=== PATIENT | female | born 1945 | race Caucasian/White ===

== ENCOUNTER → 2016-10-09 | Outpatient (CLI) | payer MEDICARE, BC ==
[~2016-10-09] MED LIST: AMOXICILLIN 8751 TAB; AMOXICILLIN 8751 TAB PO; ANTIHISTAMINE25 M1 PO; ASPIRIN 81M81 MG/TA2 PO; FLAX OIL1000 MG; FOSAMAX 70MG TA70 MG PO; GLUCOSAMINE 1000 PO; LEVOTHYROXIN0.025 MG PO; LEVOXYL0.05 MG PO; LIPITOR 10MG10 MG PO; MULTIPLE VITAMI1 CAP PO; TOPROL XL 25MG25 MG PO; TOPROL XL 50MG50 MG PO; VITAMIND3 5000
== END ==
LOC: MC.RAD 09:13
DX: Z12.31 Encounter for screening mammogram for malignant neoplasm of breast (principal); Z80.3 Family history of malignant neoplasm of breast

== ENCOUNTER → 2017-10-12 | Outpatient (CLI) | payer MEDICARE, BC | LOC: MC.RAD 09:19 | DX: Z12.31 Encounter for screening mammogram for malignant neoplasm of breast (principal) ==

== ENCOUNTER → 2017-11-04 | Outpatient (CLI) | payer MEDICARE, BC ==
[~2017-11-04] MED LIST changes: +PROBIOTIC FORMU1 CAP PO; +THE MEDICINE S200 M2 PO
== END ==
LOC: COL.RAD 12:45
DX: K51.00 Ulcerative (chronic) pancolitis without complications (principal); K56.7 Ileus, unspecified; K86.9 Disease of pancreas, unspecified
CPT/HCPCS: Q9967

== ENCOUNTER → 2017-11-25 | Outpatient (CLI) | payer MEDICARE, BC ==
[~2017-11-25] MED LIST changes: +BENTYL 10MG10 MG/CAP PO; +FLAGYL500 MG PO; +PROTONIX20 MG PO; +VANCOCIN H125 MG/CAP PO
== END ==
LOC: COL.RAD 11-23 11:00
DX: R93.5 Abnormal findings on diagnostic imaging of other abdominal regions, including retroperitoneum (principal); R14.0 Abdominal distension (gaseous); R19.4 Change in bowel habit; Z88.5 Allergy status to narcotic agent
CPT/HCPCS: Q9967

== ENCOUNTER 2018-01-30 07:24 | Emergency (ER) | payer MEDICARE, BC ==
[~2018-01-30] VITALS: Ht 165.1 cm; Wt 47.7 kg
[2018-01-30 07:27] VITALS: TEMP 97.6
[2018-01-30 08:15] LABS: COLLECTION METHOD CLEAN CATCH
[2018-01-30 08:23] LABS: PH 8 (5-8); SQUAMOUS EPITHELIAL 0-2 /hpf; URINE APPEARANCE Clear; URINE BACTERIA None Seen /hpf; URINE BILIRUBIN Negative (NEGATIVE); URINE BLOOD Negative (NEGATIVE); URINE COLOR Straw; URINE GLUCOSE Negative (NEGATIVE); URINE KETONE Negative (NEGATIVE); URINE LEUKOCYTE ESTERASE Negative (NEGATIVE); URINE NITRATE Negative (NEGATIVE); URINE PROTEIN(semi-quant) Negative (NEGATIVE); URINE RBC None Seen /hpf; URINE UROBILINOGEN Negative (NEGATIVE)
[2018-01-30 08:29] LABS: BASO # 0.1 (0.0-0.2); EOS # 0.1 (0.0-0.7); EOS % 1.5 % (0-4.0); GRAN # 3.8 (1.4-6.5); GRAN % 64.5 % (42.2-75.2); HEMATOCRIT 44.5 % (37.0-47.0); HEMOGLOBIN 14.4 g/dl (12.5-16.0); LYMPH # 1.6 (1.2-3.4); LYMPH % 26.4 % (20.0-51.0); MEAN CELL VOLUME 88 fl (80.0-100.0); MEAN CORPUSCULAR HEMOGLOBIN 28 pg (27.0-31.0); MEAN CORPUSCULAR HGB CONC 32 g/dl (33.0-37.0); MEAN PLATELET VOLUME 9.1 fl (7.4-10.4); MONO # 0.4 (0.1-0.6); MONO % 6.3 % (1.7-9.3); PLATELET COUNT 220 K/mm3 (130-400); RED BLOOD COUNT 5.08 M/mm3 (4.10-5.30); REDCELL DISTRIBUTION WIDTH-CV 13.5 % (11.5-14.5)
[2018-01-30 08:45] LABS: ALANINE AMINOTRANSFERASE 56 U/L (9-52); ALKALINE PHOSPHATASE 47 U/L (50-136); ANION GAP 9 mmol/L (7-16); AST,SGOT 38 U/L (15-37); BILIRUBIN,TOTAL 0.8 mg/dL (0.0-1.0); BLOOD UREA NITROGEN 14 mg/dL (7-17); CARBON DIOXIDE 29 mmol/L (22-30); CHLORIDE 101 mmol/L (98-107); CREATININE, serum 0.79 mg/dL (0.52-1.25); GLUCOSE 81 mg/dL (74-106); POTASSIUM 3.9 mmol/L (3.4-5.0); SODIUM 140 mmol/L (137-145); TOTAL PROTEIN 7.6 gm/dL (6.4-8.2)
[2018-01-30 08:51] LABS: C-REACTIVE PROTEIN < 0.5 mg/dL (0.0-0.9)
[2018-01-30 10:43] VITALS: BP 146/66; PULSE 60
== END 2018-01-30 10:25 | disposition home or self-care (01) ==
LOC: COL.ER 07:24
PROVIDERS: Nurse Practitioner Primary Care
DX: R10.31 Right lower quadrant pain (principal); G89.29 Other chronic pain; M25.551 Pain in right hip; Z79.82 Long term (current) use of aspirin; E03.9 Hypothyroidism, unspecified; Z90.710 Acquired absence of both cervix and uterus; Z95.0 Presence of cardiac pacemaker
CPT/HCPCS: J1885; Q9967

== ENCOUNTER → 2018-02-03 | Outpatient (CLI) | payer MEDICARE, BC | LOC: COL.RAD 13:00 | DX: M51.27 Other intervertebral disc displacement, lumbosacral region (principal); M51.37 Other intervertebral disc degeneration, lumbosacral region; M48.061 Spinal stenosis, lumbar region without neurogenic claudication; M99.73 Connective tissue and disc stenosis of intervertebral foramina of lumbar region ==

== ENCOUNTER → 2018-06-11 | Outpatient (CLI) | payer MEDICARE, BC | LOC: COL.RAD 08:27 | DX: K63.89 Other specified diseases of intestine (principal); K86.89 Other specified diseases of pancreas; K76.89 Other specified diseases of liver; B96.89 Other specified bacterial agents as the cause of diseases classified elsewhere; D18.03 Hemangioma of intra-abdominal structures; Z87.19 Personal history of other diseases of the digestive system | CPT/HCPCS: Q9967 ==

== ENCOUNTER → 2018-11-17 | Outpatient (CLI) | payer MEDICARE, BC | LOC: MC.RAD 10-18 08:45 | DX: Z12.31 Encounter for screening mammogram for malignant neoplasm of breast (principal) ==

== ENCOUNTER 2019-02-04 12:46 | Inpatient (IN) | payer MEDICARE, BC ==
[~2019-02-04] VITALS: Ht 165.1 cm; Wt 53.5 kg
[~2019-02-04 12:46] MED LIST changes: -FLAX OIL1000 MG; +FLAXSEED OIL1000 MG PO
[2019-02-04 13:30] VITALS: BP 129/45; PULSE 87; TEMP 99
--- NOTE | 2019-02-04 13:35 | NUR ---
Received pt to floor. Oriented to room. Aid in to do initial assessment.
[2019-02-04] MEDS ORDERED: TOPROL XL 25MG25 MG PO (14:14)
--- NOTE | 2019-02-04 14:15 | NUR ---
Pt lying in bed, denies any shortness of breath, c/o pain to head and groin. Completed admission assessment and inserted 20g IV. Denies any needs at this time.
[2019-02-04] MEDS ORDERED: GLUCOSAMINE & C1 CA2 PO (14:17)
[2019-02-04] MEDS ORDERED: CALTRATE 600 +1 TAB PO (14:18)
[2019-02-04 15:18] LABS: BASO % 0.2 % (0.0-2.0); GRAN % 92.2 % (42.2-75.2); HEMATOCRIT 39.9 % (37.0-47.0); HEMOGLOBIN 13.4 g/dl (12.5-16.0); LYMPH # 0.6 (1.2-3.4); LYMPH % 4.8 % (20.0-51.0); MEAN CELL VOLUME 88 fl (80.0-100.0); MEAN CORPUSCULAR HEMOGLOBIN 30 pg (27.0-31.0); MEAN CORPUSCULAR HGB CONC 34 g/dl (33.0-37.0); MEAN PLATELET VOLUME 9.8 fl (7.4-10.4); MONO # 0.3 (0.1-0.6); MONO % 2.3 % (1.7-9.3); PLATELET COUNT 181 K/mm3 (130-400); RED BLOOD COUNT 4.55 M/mm3 (4.10-5.30); REDCELL DISTRIBUTION WIDTH-CV 13.9 % (11.5-14.5)
[2019-02-04 15:28] LABS: ALBUMIN 3.8 gm/dL (3.5-5.0); BILIRUBIN,TOTAL 0.8 mg/dL (0.0-1.0); CALCIUM 8.5 mg/dL (8.4-10.2); CREATININE, serum 0.75 (0.52-1.25); POTASSIUM 3.5 mmol/L (3.4-5.0); TOTAL PROTEIN 6.8 gm/dL (6.4-8.2)
[2019-02-04 15:47] VITALS: BP 116/42; PULSE 82; TEMP 98.5
--- NOTE | 2019-02-04 17:56 | NUR ---
Pt sitting in bed, C/O pain 4/10 to head and groin. Administered pain medication per emar. Dinner ordered, denies any other needs.
[2019-02-04 18:04] LABS: MAGNESIUM 1.8 mg/dL (1.6-2.3)
[2019-02-04 18:16] LABS: TROPONIN-I 0.015 ng/mL (0.000-0.035)
[2019-02-04 18:34] LABS: THYROID STIMULATING HORMONE 0.658 uIU/mL (0.465-4.680)
--- NOTE | 2019-02-04 19:23 | NUR ---
Lab called with question about a lab ordered for borrelia burgdorferi, they believe the test requires CSF or snyovial fluid. Called Na URIARTE, she will follow up with this at a later time ezio.
--- NOTE | 2019-02-04 20:00 | NUR ---
PT IN BED WITH HOB ELEVATED TO 15 DEGREE ANGLE. PT HAS PAIN IN LEFT GROIN AREA THAT IS SWOLLEN. PT ALSO HAS A BITE ON LEFT THIGH AREA THAT IS BROWN, RED, WARM, AND SWOLLEN, ABOUT THE SIDE OF A DIME. PT DENIES PAIN OR DISCOMFORT AT THIS TIME AND NO NEEDS. CALL LIGHT WITHIN REACH.
[2019-02-04 20:06] VITALS: BP 94/38; PULSE 71; TEMP 98.3
[2019-02-04 23:24] VITALS: BP 112/46; PULSE 69; TEMP 98.6
[2019-02-05] VITALS (8 sets, daily range): BP systolic 100–121; BP diastolic 40–50; PULSE 60–75; TEMP 97.5–98.8
--- NOTE | 2019-02-05 06:03 | NUR ---
UNEVENTFUL NIGHT. PT SLEPT/RESTED WELL, WITH NO S/S OF PAIN OR DISCOMFORT NOTED. CALL LIGHT WITHIN REACH.
--- NOTE | 2019-02-05 07:34 | NUR ---
REPORT RECEIVED FROM WAYNE OSPINA. PT JUST AWAKE AND C/O NAUSEA. CALL LIGHT IN REACH.
--- NOTE | 2019-02-05 07:57 | NUR ---
Pt c/o headache and agreed to take Tylenol. Call light in reach. Carckers and Jesus provided.
[2019-02-05 08:50] LABS: HEMATOCRIT 37.3 % (37.0-47.0); HEMOGLOBIN 12.1 g/dl (12.5-16.0); MEAN CELL VOLUME 89 fl (80.0-100.0); MEAN CORPUSCULAR HEMOGLOBIN 29 pg (27.0-31.0); MEAN CORPUSCULAR HGB CONC 32 g/dl (33.0-37.0); MEAN PLATELET VOLUME 9.9 fl (7.4-10.4); PLATELET COUNT 141 K/mm3 (130-400); RED BLOOD COUNT 4.18 M/mm3 (4.10-5.30); REDCELL DISTRIBUTION WIDTH-CV 14.2 % (11.5-14.5)
[2019-02-05 09:04] LABS: BILIRUBIN,TOTAL 0.4 mg/dL (0.0-1.0); CALCIUM 7.7 mg/dL (8.4-10.2); CREATININE, serum 0.64 (0.52-1.25); PHOSPHOROUS 2.1 mg/dL (2.5-4.5); POTASSIUM 3.4 mmol/L (3.4-5.0); TOTAL PROTEIN 5.8 gm/dL (6.4-8.2)
--- NOTE | 2019-02-05 10:29 | NUR ---
Pt resting in bed comfortably and denied pain and nausea. Pt's doroteo visiting in . Call light in reach.
[2019-02-05 11:44] LABS: BAND 8 % (0-10); DOHLE BODIES PRESENT; LYMPHOCYTE 7 % (20.0-51.0); NEUTROPHILS 85 % (42.0-75.2); PLATELET ESTIMATE NORMAL (NORMAL); TOXIC GRANULATION PRESENT
--- NOTE | 2019-02-05 13:26 | NUR ---
Pt c/o headache and asked for Tylenol now. Pack of ice provide for pt to put over her head along with Tylenol. Call light in reach.
--- NOTE | 2019-02-05 14:43 | NUR ---
Plan: Pt plans to return home with Skylar as care support. Pat reports that her will transport home. Patient indicated that she does not require any DME. PCP is Dr. Bhargavi Claire, patient uses [facility] for RX, is verbally reported as dpoa. Patient report pacemaker monitor. No upcoming apps. Action:Sw offered services in the area, educated on supports. Will follow for care.
--- NOTE | 2019-02-05 16:55 | NUR ---
Pt resting in bed and reports "feeling better." Pt now wants to watch TV. Pt's in rm. Call light in reach.
--- NOTE | 2019-02-05 18:13 | NUR ---
Pt resting in bed comfortably and pt's visiting in . Pt denied LANDAVERDE and pain. No concern. Call light in reach.
--- NOTE | 2019-02-05 20:05 | NUR ---
PT IN BED WITH HOB ELEVATED TO 45 DEGREE ANGLE. PT ADVISES THAT MEDICATION IS WORKING AND REALLY NOT IN PAIN. PT WANTED TYLENOL WITH TORADOL FOR PREVENTATIVE PAIN. PT ADVISED THAT PAIN MEDICATION HAS WORKED BEST THAT WAY FOR HER. PT HAS NO NEEDS AT THIS TIME. PT WANTS TO WAIT TILL TOMORROW TO WALK. CALL LIGHT WITHIN REACH.
[2019-02-06 03:44] VITALS: BP 119/49; PULSE 64; TEMP 98
--- NOTE | 2019-02-06 04:40 | NUR ---
PT WAS AWAKEN ABOUT 0200 TO GIVE SCHEDULED PAIN MEDICATION. PT WAS SLEEPING WELL AND DENIED PAIN OR DISCOMFORT NOTED. PT HAD NO NEEDS AT THAT TIME AND PT DRIFTED BACK TO SLEEP WITH NO PROBLEMS. CALL LIGHT WITHIN REACH.
--- NOTE | 2019-02-06 07:45 | NUR ---
Pt AAOx4 in bed, complaining of minor general malaise. Tike bite site inspected. Groin site inspected and does not appear swollen, but pt states groin site is tender upon palpation. Pt independent in room without difficulty. No visitors present. Pt states will be here today and would like to go for walk in hallway once he is here
[2019-02-06 08:20] VITALS: BP 128/54; PULSE 65; TEMP 97.6
[2019-02-06 08:24] LABS: HEMOGLOBIN 10.8 g/dl (12.5-16.0); MEAN CELL VOLUME 89 fl (80.0-100.0); MEAN CORPUSCULAR HEMOGLOBIN 29 pg (27.0-31.0); MEAN CORPUSCULAR HGB CONC 33 g/dl (33.0-37.0); MEAN PLATELET VOLUME 10.2 fl (7.4-10.4); PLATELET COUNT 126 K/mm3 (130-400); RED BLOOD COUNT 3.71 M/mm3 (4.10-5.30); REDCELL DISTRIBUTION WIDTH-CV 14.7 % (11.5-14.5)
[2019-02-06 08:31] LABS: ALBUMIN 2.7 gm/dL (3.5-5.0); BILIRUBIN,TOTAL 0.3 mg/dL (0.0-1.0); CALCIUM 7.5 mg/dL (8.4-10.2); CREATININE, serum 0.59 (0.52-1.25); POTASSIUM 3.4 mmol/L (3.4-5.0); TOTAL PROTEIN 5.3 gm/dL (6.4-8.2)
[2019-02-06 08:32] LABS: HEMATOCRIT 33.1 % (37.0-47.0)
[2019-02-06 09:56] LABS: BAND 36 % (0-10); HYPOCHROMIA 2+; LYMPHOCYTE 14 % (20.0-51.0); NEUTROPHILS 47 % (42.0-75.2); PLATELET ESTIMATE DECREASED (NORMAL)
[2019-02-06 12:25] VITALS: BP 148/51; PULSE 71; TEMP 97.6
[2019-02-06] MEDS ORDERED: Monodox PO (16:15)
[2019-02-08 09:41] LABS: LYME DISEASE ANTIBODIES Negative (Negative)
== END 2019-02-06 17:00 | disposition home or self-care (01) | DRG 872 ==
LOC: MEDICAL 12:46
PROVIDERS: ADMIT Family Medicine
DX: A41.89 Other specified sepsis (principal); A93.8 Other specified arthropod-borne viral fevers; L03.116 Cellulitis of left lower limb; E86.0 Dehydration; R59.0 Localized enlarged lymph nodes; E03.9 Hypothyroidism, unspecified; I10 Essential (primary) hypertension; E78.5 Hyperlipidemia, unspecified; R00.0 Tachycardia, unspecified; Z95.0 Presence of cardiac pacemaker
CPT/HCPCS: 99233-AI; 99239; J1650; J1885; J2405; J3370; J7030; J7050

== ENCOUNTER 2019-02-20 08:06 | Emergency (ER) | payer MEDICARE, BC ==
[~2019-02-20] VITALS: Ht 165.1 cm; Wt 46.8 kg
[~2019-02-20 08:06] MED LIST changes: +CALTRATE 600 +1 TAB PO; +GLUCOSAMINE & C1 CA2 PO; +Monodox PO
[2019-02-20 08:31] LABS: BASO % 0.4 % (0.0-2.0); HEMATOCRIT 41.2 % (37.0-47.0); HEMOGLOBIN 13.3 g/dl (12.5-16.0); LYMPH # 0.9 (1.2-3.4); LYMPH % 12.5 % (20.0-51.0); MEAN CELL VOLUME 89 fl (80.0-100.0); MEAN CORPUSCULAR HEMOGLOBIN 29 pg (27.0-31.0); MEAN CORPUSCULAR HGB CONC 32 g/dl (33.0-37.0); MONO # 0.4 (0.1-0.6); MONO % 5.7 % (1.7-9.3); PLATELET COUNT 298 K/mm3 (130-400); RED BLOOD COUNT 4.64 M/mm3 (4.10-5.30)
[2019-02-20 08:49] LABS: ALBUMIN 3.9 gm/dL (3.5-5.0); BILIRUBIN,TOTAL 0.5 mg/dL (0.0-1.0); C-REACTIVE PROTEIN 5.4 mg/dL (0.0-0.9); CALCIUM 8.5 mg/dL (8.4-10.2); CREATININE, serum 0.7 (0.52-1.25); POTASSIUM 3.8 mmol/L (3.4-5.0)
[2019-02-20 08:52] LABS: ERYTHROCYTE SEDIMENTATION RATE 14 mm/hr (0-30)
[2019-02-20] MEDS ORDERED: CORLANOR5 MG PO (08:55)
[2019-02-20 09:17] LABS: TSH w REFLEX 0.819 uIU/mL (0.465-4.680)
[2019-02-20 09:34] LABS: COLLECTION METHOD CLEAN CATCH
[2019-02-20 09:42] LABS: PH 7 (5-8); SQUAMOUS EPITHELIAL None Seen /hpf; URINE APPEARANCE Clear; URINE BACTERIA Rare /hpf; URINE BILIRUBIN Negative (NEGATIVE); URINE BLOOD Negative (NEGATIVE); URINE COLOR Yellow; URINE GLUCOSE Negative (NEGATIVE); URINE KETONE 1+ (NEGATIVE); URINE LEUKOCYTE ESTERASE Negative (NEGATIVE); URINE NITRATE Negative (NEGATIVE); URINE PROTEIN(semi-quant) Negative (NEGATIVE); URINE RBC 0-2 /hpf; URINE UROBILINOGEN Negative (NEGATIVE)
[2019-02-20] MEDS ORDERED: DOXYCYCLINE 10100 MG PO (09:54)
[2019-02-20 10:30] VITALS: BP 127/65; PULSE 80; TEMP 98.1
[2019-02-22 08:23] LABS: LYME DISEASE ANTIBODIES Negative (Negative)
== END 2019-02-20 10:30 | disposition home or self-care (01) ==
LOC: COL.ER 08:06
PROVIDERS: Emergency Medicine
DX: R59.0 Localized enlarged lymph nodes (principal); R50.9 Fever, unspecified; Z79.82 Long term (current) use of aspirin
CPT/HCPCS: J1885; J7030

== ENCOUNTER → 2019-03-04 | Outpatient (CLI) | payer MEDICARE, BC ==
[~2019-03-04] MED LIST changes: +CORLANOR5 MG PO; +DOXYCYCLINE 10100 MG PO
== END ==
LOC: COL.LAB 12:00
DX: A21.9 Tularemia, unspecified (principal)

== ENCOUNTER → 2020-01-10 | Outpatient (CLI) | payer MEDICARE, BC | LOC: MC.RAD 06:56 | DX: Z12.31 Encounter for screening mammogram for malignant neoplasm of breast (principal) ==

== ENCOUNTER 2020-08-02 08:47 | Outpatient (RCR) | payer MEDICARE, BC ==
[2020-08-02 08:29] VITALS: BP 146/62; PULSE 70; TEMP 97.6
[~2020-08-02 08:47] MED LIST changes: -VITAMIND3 5000; +VITAMIND3 5000 PO
== END 2020-08-20 | disposition home or self-care (01) ==
LOC: COL.ER
DX: Z23 Encounter for immunization (principal); Z20.3 Contact with and (suspected) exposure to rabies

== ENCOUNTER → 2021-01-11 | Outpatient (CLI) | payer MEDICARE, BC | LOC: MC.RAD 07:45 | DX: Z12.31 Encounter for screening mammogram for malignant neoplasm of breast (principal) ==

== ENCOUNTER 2021-06-21 14:50 | Outpatient (CLI) | payer MEDICARE, BC ==
[~2021-06-21] VITALS: Ht 165.1 cm; Wt 50.7 kg
[2021-06-21 15:47] VITALS: BP 128/62; PULSE 62; TEMP 98.7
== END 2021-06-21 16:15 | disposition home or self-care (01) ==
LOC: EUO 14:50
DX: M81.0 Age-related osteoporosis without current pathological fracture (principal)
CPT/HCPCS: J3489

== ENCOUNTER 2021-11-29 08:54 | Emergency (ER) | payer MEDICARE ==
[~2021-11-29] VITALS: Ht 165.1 cm; Wt 50.0 kg
[2021-11-29 08:58] VITALS: TEMP 98
[2021-11-29 09:14] LABS: BASO # 0.1 K/mm3 (0.0-0.2); BASO % 1.4 % (0.0-2.0); EOS # 0.4 K/mm3 (0.0-0.7); EOS % 6.7 % (0.0-4.0); GRAN # 3.3 K/mm3 (1.4-6.5); GRAN % 50.5 % (42.2-75.2); HEMATOCRIT 43.4 % (37.0-47.0); HEMOGLOBIN 14.1 g/dl (12.5-16.0); LYMPH # 2.2 K/mm3 (1.2-3.4); LYMPH % 34.3 % (20.0-51.0); MEAN CELL VOLUME 87 fl (80.0-100.0); MEAN CORPUSCULAR HEMOGLOBIN 28 pg (27-31); MEAN CORPUSCULAR HGB CONC 33 g/dl (33.0-37.0); MEAN PLATELET VOLUME 9.5 fl (7.4-10.4); MONO # 0.4 K/mm3 (0.1-0.6); MONO % 6.8 % (1.7-9.3); PLATELET COUNT 277 K/mm3 (130-400); RED BLOOD COUNT 4.97 M/mm3 (4.10-5.30); REDCELL DISTRIBUTION WIDTH-CV 13.4 % (11.5-14.5)
[2021-11-29 09:31] LABS: ALANINE AMINOTRANSFERASE 28 U/L (0-55); ALBUMIN 4.4 gm/dL (3.4-4.8); ALKALINE PHOSPHATASE 51 U/L (40-150); ANION GAP 9 mmol/L (7-16); AST,SGOT 27 U/L (5-34); BILIRUBIN,TOTAL 0.7 mg/dL (0.2-1.2); BLOOD UREA NITROGEN 16 mg/dL (10-20); CALCIUM 9.2 mg/dL (8.4-10.2); CARBON DIOXIDE 27 mmol/L (23-31); CHLORIDE 104 mmol/L (98-107); CREATININE, serum 0.84 mg/dL (0.57-1.11); GLUCOSE 88 mg/dL (70-99); POTASSIUM 3.8 mmol/L (3.5-4.5); SODIUM 140 mmol/L (136-145); TOTAL PROTEIN 7.2 gm/dL (6.2-8.1)
[2021-11-29 09:40] LABS: TROPONIN-I < 0.010 ng/mL (0.00-0.033)
[2021-11-29 10:32] VITALS: BP 158/89; PULSE 67
== END 2021-11-29 10:33 | disposition home or self-care (01) ==
LOC: COL.ER 08:54
PROVIDERS: Student in an Organized Health Care Education/Training Program
DX: R07.89 Other chest pain (principal); Z95.0 Presence of cardiac pacemaker

== ENCOUNTER → 2022-01-21 | Outpatient (CLI) | payer MEDICARE | LOC: MC.RAD 09:09 | DX: Z12.31 Encounter for screening mammogram for malignant neoplasm of breast (principal) ==

== ENCOUNTER → 2024-02-22 | Outpatient (CLI) | payer MEDICARE ==
[~2024-02-22] MED LIST changes: +PEPCID 20MG TAB20 MG PO; -PROBIOTIC FORMU1 CAP PO; +PROBIOTIC-MAJOR PO
== END ==
LOC: MC.RAD 07:51
DX: Z12.31 Encounter for screening mammogram for malignant neoplasm of breast (principal)